=== PATIENT | male | born 1940 | race Two or more races ===

== ENCOUNTER 2018-04-01 08:54 | Outpatient (CLI) | payer OTHER ==
[~2018-04-01 08:54] MED LIST: BAYER81 MG; CALTRATE 600600 MG; CRESTOR10 MG; DIS; INSULIN SY; LISINOPRIL20 MG; PLAVIX75 MG; PLETAL50 MG; ZETIA10 MG
== END 2018-04-01 09:00 | disposition home or self-care (01) ==
LOC: SONOGRAMA 08:54 → MAMO-SONO 09:15
DX: K31.84 Gastroparesis (principal); K21.9 Gastro-esophageal reflux disease without esophagitis; T85.191A Other mechanical complication of implanted electronic neurostimulator of peripheral nerve electrode (lead), initial encounter

== ENCOUNTER 2018-04-05 07:19 | Outpatient (CLI) | payer OTHER ==
[2018-04-13] MEDS ORDERED: HUMALOG100 UNIT/1 (09:45)
[2018-04-13] MEDS ORDERED: LANTUS SOL100 UNIT/1 ×2 (09:46)
== END 2018-04-05 08:00 | disposition home or self-care (01) ==
LOC: NUCLEAR 07:19
DX: K31.84 Gastroparesis (principal)
CPT/HCPCS: 78264; A9541

== ENCOUNTER → 2018-04-13 | Emergency (ER) | payer OTHER ==
[~2018-04-13] VITALS: Ht 177.8 cm; Wt 70.3 kg
[~2018-04-13] MED LIST changes: +HUMALOG100 UNIT/1; +LANTUS SOL100 UNIT/1
== END | disposition home or self-care (01) ==
LOC: ER 09:23
DX: S20.211A Contusion of right front wall of thorax, initial encounter (principal); W01.198A Fall on same level from slipping, tripping and stumbling with subsequent striking against other object, initial encounter; Y93.E8 Activity, other personal hygiene; Y92.012 Bathroom of single-family (private) house as the place of occurrence of the external cause; Y99.8 Other external cause status

== ENCOUNTER 2018-04-28 07:27 | Outpatient (CLI) | payer OTHER | END 2018-04-28 07:29 | disposition home or self-care, planned readmission (81) | LOC: TOM 07:27 | DX: Z12.11 Encounter for screening for malignant neoplasm of colon (principal) ==